=== PATIENT | male | born 1975 | race Caucasian/White ===

== ENCOUNTER 2019-01-12 21:02 | Emergency (ER) | payer SELFPAY ==
[2019-01-12 21:03] VITALS: BP 118/69; PULSE 58; RESP 16; TEMP 37.1; O2SAT 98; BMI 22.4
--- NOTE | 2019-01-12 21:07 | RAD_ITS ---
STUDY: X-RAY - RIGHT TIBIA AND FIBULA REASON FOR EXAM: Male, 43 years old. Pain. Recent injury. TECHNIQUE: Frontal and lateral view(s) of the tibia and fibula were obtained. COMPARISON: None. FINDINGS: Normal visualized tibia. There is fixation plate and screws traversing healed fracture of the distal fibula. There is no acute fracture The soft tissue structures are unremarkable. RAD/Tibia & Fibula 2 Views IMPRESSION: Healed fibula fracture. Electronically Signed: Christian East MD at 21:52 EDT , Service support ,
--- NOTE | 2019-01-12 21:40 | RAD_ITS ---
STUDY: X-RAY - PELVIS AND RIGHT HIP REASON FOR EXAM: Male, 43 years old. Pain. Recent injury. TECHNIQUE: 3 views of the pelvis and hip. COMPARISON: None. FINDINGS: There is a normal bowel gas pattern. Normal visualized soft tissue structures. Normal bilateral iliac wings, sacroiliac joints and visualized sacrum. Normal bilateral superior and inferior pubic rami. Normal pubic symphysis. Normal bilateral ischial tuberosities. Normal visualized femoral head. Normal acetabulum. Normal hip joint. There is no acute fracture. RAD/HIP, UNI W/ Pelvis 2-3 Views IMPRESSION: Normal x-ray examination of the pelvis and hip. Electronically Signed: Christian East MD at 21:54 EDT , Service support ,
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
[2019-01-12] MEDS: HYDROcodone Bitartrate/Apap 5/325 Tablet PO (23:09)
== END 2019-01-12 23:20 | disposition home or self-care (01) ==
PROVIDERS: Emergency Provider Emergency Medicine
DX: S80.11XA Contusion of right lower leg, initial encounter (principal); S80.811A Abrasion, right lower leg, initial encounter; S40.811A Abrasion of right upper arm, initial encounter; M25.551 Pain in right hip; V19.9XXA Pedal cyclist (driver) (passenger) injured in unspecified traffic accident, initial encounter; Y93.9 Activity, unspecified; Y92.9 Unspecified place or not applicable
CPT/HCPCS: 73502; 73590; 99282

== ENCOUNTER 2020-04-14 18:12 | Emergency (ER) | payer MEDICAID, SELFPAY ==
[2020-04-14 18:13] VITALS: BP 129/83; PULSE 55; RESP 16; TEMP 36.4; O2SAT 99; BMI 22.4
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
[2020-04-14 18:54] LABS: Absolute Lymphocyte Count 2.06 X10^3/uL (0.83-4.51); Absolute Neutrophil Count 6.2 X10^3/uL (2.0-7.7); Basophil# 0.03 X10^3/uL; Basophil% 0.3 % (0-1); Eosinophil# 0.03 X10^3/uL; Eosinophils% 0.3 % (0-5); Hematocrit 40.5 % (40-54); Lymphocyte # 2.06 X10^3/ul (4.0); Lymphocyte % 23.4 % (19-41); Mean Corp Hgb Conc 32.1 g/dL (32-36); Mean Corpuscular Hgb 28.1 pg (27.0-32.0); Mean Corpuscular Volume 87.7 fL (80-94); Mean Platelet Vol. 9.5 fl (6.2-12.0); Monocyte# 0.42 X10^3/uL; Monocyte% 4.8 % (0-10); NRBC Flagged by Analyzer 0 % (0-5); Neutrophil # 6.23 X10^3/uL (2.7-7.7); Neutrophil % 70.9 % (47-70); Platelet Count 330 K/mm3 (150-450); RBC Distribution Width CV 13.7 % (11.6-14.6); RBC Distribution Width SD 43.8 fl (35.1-43.9); Red Blood Count 4.62 M/mm3 (4.6-6.2); White Blood Count 8.8 K/mm3 (4.4-11.0)
[2020-04-14 19:02] LABS: Anion Gap 5 (5-15); BUN 26 mg/dL (7-18); BUN/Creat Ratio 26.9 RATIO (10-20); Chloride 104 mmol/L (98-107); Creatinine, Serum 0.97 mg/dL (0.70-1.30); EST Glomerular Filtration Rate 91 mL/min (>60); Est Glom Filt Rate - Afr Amer 110 mL/min (>60); Estimated Creatinine Clearance 102.29 ml/min; Glucose 130 mg/dL (74-106); Potassium 3.6 mmol/L (3.5-5.1); Sodium Level 137 mmol/L (136-145)
[2020-04-14] MEDS: Diphth,Pertuss(Acell),Tet Vac 0.5 ML Vial IM (20:03)
[2020-04-14] MEDS: Ondansetron 4 MG/2 ML Vial IV (20:04)
[2020-04-14 20:06] VITALS: BP 132/78; PULSE 51; RESP 14; O2SAT 100
[2020-04-14 20:37] VITALS: BP 128/74; PULSE 50; RESP 14; O2SAT 100
[2020-04-14 21:07] VITALS: BP 125/68; PULSE 53; RESP 16; O2SAT 98
== END 2020-04-14 21:08 | disposition short-term general hospital (02) ==
PROVIDERS: Emergency Provider Emergency Medicine
DX: S02.0XXA Fracture of vault of skull, initial encounter for closed fracture (principal); S01.01XA Laceration without foreign body of scalp, initial encounter; S01.311A Laceration without foreign body of right ear, initial encounter; M25.552 Pain in left hip; V13.4XXA Pedal cycle driver injured in collision with car, pick-up truck or van in traffic accident, initial encounter; Y93.55 Activity, bike riding; Y92.9 Unspecified place or not applicable; F31.9 Bipolar disorder, unspecified
CPT/HCPCS: 70450; 71045; 72125; 72170; 80048; 80320; 85025; 90715; 96374; 99283; 99285; A4216; G0480; J2405

== ENCOUNTER 2020-07-03 12:09 | Emergency (ER) | payer MEDICAID, SELFPAY ==
[2020-07-03 12:10] VITALS: BP 150/89; PULSE 69; RESP 16; TEMP 35.6; O2SAT 98; BMI 21.5
[2020-07-03] MEDS: Morphine 4 MG/ML Syringe IM (13:01)
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
--- NOTE | 2020-07-03 13:48 | ED.VISSUMM ---
- ER Visit Summary Date of Service: 07/03/20 Chief Complaint: Neck pain History of Present Illness: The patient is a 44 M who presents with neck pain that began last evening. Patient states he bent his neck forward to look down at something and felt sharp pain in his neck. Patient states the pain is worse with any movement. Patient states he was able to find a position of comfort last night to go to sleep. Patient denies any radiation of the pain. Patient denies any paresthesias or weakness. Patient denies any trauma or injury. Physical Examination: Vital signs are stable. Patient is afebrile. Patient is in no acute distress. Oral mucosa is pink and moist. Examination of the cervical spine shows some mild tenderness and spasm of the paraspinal muscles. There is some mild midline tenderness. There is no bony crepitance or step-off. Range of motion was limited in all motions of the cervical spine secondary to pain. Cranial nerves II through XII are intact. There are no focal motor or sensory deficits noted. Test Results: X-rays of the cervical spine were obtained. There are 3 views. On my interpretation, there is no acute fracture. There is no spondylolisthesis or spondylolysis noted. Radiologist also interpreted the x-rays and agrees. Emergency Department Course and Treatment: Patient was given an injection of morphine here. Patient was feeling better on reevaluation. Patient was given a prescription for Flexeril to take at bedtime. Patient was instructed to follow-up with his primary care physician in 5 to 7 days. Patient understood and was agreeable with the plan. All questions were answered. Disposition: Discharge home Impression: Acute cervical strain This note was generated with [employer] dictation software. It may contain incorrect words, spelling, and punctuation that were not noted in review of the chart prior to signing ED Disposition - Plan for ED Patient: Disposition: Home or Assisted Living Diagnosis: Acute cervical myofascial strain Instructions: ED Neck Sprain or Strain Prescriptions: cycloBENZAPRine HCl [Flexeril] 10 mg PO QHS PRN PRN #20 tab PRN Reason: Muscle Spasm Prescription Printed Referrals: Care Physician,No Primary [NON-STAFF] - 3-5 Days
== END 2020-07-03 14:08 | disposition home or self-care (01) ==
LOC: ED 13:54
PROVIDERS: Emergency Provider Emergency Medicine; PCP Family Medicine
DX: S16.1XXA Strain of muscle, fascia and tendon at neck level, initial encounter (principal); X58.XXXA Exposure to other specified factors, initial encounter; Y93.9 Activity, unspecified; Y92.9 Unspecified place or not applicable
CPT/HCPCS: 72040; 96372; 99282

== ENCOUNTER 2020-10-27 12:40 | Emergency (ER) | payer MEDICAID, SELFPAY ==
[2020-10-27 12:41] VITALS: BP 123/75; PULSE 68; RESP 16; TEMP 36.6; O2SAT 98; BMI 20.7
--- NOTE | 2020-10-27 12:56 | RAD_ITS ---
STUDY: X-RAY - RIGHT KNEE REASON FOR EXAM: Male, 44 years old. Anterior knee pain following injury. TECHNIQUE: 4 view(s) of the knee. COMPARISON: None. FINDINGS: Normal visualized distal femur. Normal visualized proximal tibia and fibula. Normal proximal tibiofibular articulation. Normal medial femorotibial compartment. Normal lateral femorotibial compartment. Normal patellofemoral articulation. Mild degree of prepatellar soft tissue swelling. RAD/Knee 4 or More Views IMPRESSION: Mild degree of prepatellar soft tissue swelling. Electronically Signed: Javier Coronado MD at 13:30 EDT , Service support ,
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
[2020-10-27 14:30] VITALS: PULSE 79; RESP 16; O2SAT 100
--- NOTE | 2020-10-27 14:57 | ED.RN ---
THIS NURSE REVIEWED D/C INSTRUCTIONS WITH PT. PT VERBALIZED UNDERSTANDING OF INSTRUCTIONS. PT DENIES FURTHER NEEDS OR QUESTIONS AT THIS TIME. PT AMBULATES FROM ROOM WITH CRUTCHES.
== END 2020-10-27 14:58 | disposition home or self-care (01) ==
PROVIDERS: Emergency Provider Emergency Medicine; PCP Family Medicine
DX: S83.91XA Sprain of unspecified site of right knee, initial encounter (principal); S80.01XA Contusion of right knee, initial encounter; V19.9XXA Pedal cyclist (driver) (passenger) injured in unspecified traffic accident, initial encounter; Y93.55 Activity, bike riding; Y92.9 Unspecified place or not applicable; Z87.820 Personal history of traumatic brain injury
CPT/HCPCS: 73564; 99284